=== PATIENT | female | born 1940 | race Caucasian/White ===

== ENCOUNTER 2016-12-12 05:49 | Emergency (ER) | payer MEDICARE, BC ==
[~2016-12-12 05:49] MED LIST: DIOVAN40 MG PO; DULCOLAX10 MG PR; LOPID600 MG PO; LORTAB 7.5-3251 EACH PO; LOVENOX40 MG/0.4 SQ; MAALOX DPS30 ML PO; MILK OF MAGNESI10 ML PO; MIRALAX DPS17 GM PO; NORVASC5 MG PO; PRILOSEC20 MG PO; SYNTHROID DP0.125 MG PO; TUMS DPS500 MG PO; TYLENOL DP650 MG/20. PO; TYLENOL-DPS650 MG PR; TYLENOL325 MG PO
--- NOTE | 2016-12-12 16:19 | ER ---
ADMIT: 12/12/2016 RM/LOC: ER [facility] MR#: [id number] [address] [address] JULIA BERNABE [address] [place] [address] Emergency Room Report SEX: F AGE: 76 : 1940 DATE: 12/12/2016 TIME: 0549 hours. Please refer to [address] Aleman's T sheet and his dictation. Briefly I am following up on labs on this patient. She came in with some kind of un- balance feeling. CAT scan of her brain was negative. CBC normal. Chemistries normal except glucose 136. UA normal. Troponin negative. Coags normal. EKG was sinus rhythm, no changes. She was given a 500 mL bolus, she did feel better. She suffers from seasonal allergies. After long discussion, we decided to treat her with some prednisone and she will follow up. ASSESSMENT: 1. Dizziness. 2. Seasonal allergies. PLAN: Prednisone 20 a day for 5 days. Return if worse. Follow up with Ryann next week. Willian Dior MD/ joan JOB #: [id number] CC: Prashant Aleman MD, Attending Physician Pal Stevens MD, Family Physician
--- NOTE | 2016-12-12 19:58 | ER ---
ADMIT: 12/12/2016 RM/LOC: ER [facility] MR#: [id number] [address] [address] JULIA BERNABE [address] [place] [address] Emergency Room Report SEX: F AGE: 76 : 1940 DATE: 12/12/2016 HISTORY OF PRESENT ILLNESS: The patient is a 76-year-old female who came to the ER with chief complaint of dizziness and allegedly globally since this morning. The patient states she woke up and had three loose bowel movement and she felt very wobbly and out of balance this morning. The patient states previously, she had similar episodes in the past, which was resolved. The patient denies any numbness, tingling, weakness, or any visual changes. The patient states she had general weakness without any specific focal weakness. PHYSICAL EXAMINATION: GENERAL: In the ER, the patient was alert, oriented to person, place, and time in no obvious pain or distress, lying in bed, the patient had stable vitals with elevated high blood pressure to 170s. HEENT: Normal extraocular movements. Pupils are 3 mm, reactive to light bilaterally, and normal cranial nerves. Normal motor and sensory in all extremities. There is no facial droop. CHEST: Clear bilaterally without any extra sounds. HEART: Normal S1, S2 without any murmurs. ABDOMEN: Soft without any pulsatile mass or other abnormalities. NECK: There are no bruits in the neck. EXTREMITIES: Exam was noncontributory. EKG did not show any ST or T changes. Lab work was requested, CBC, CMP, cardiac enzymes, and CT of the head was also requested. The patient was signed out to next shift to follow up on the lab work and imaging at this point accordingly. At this institution, the patient had no auditory symptom- like decreased hearing, ear discharge, vertigo, inner ear pathologies are not at the top of our differentials. The patient was signed out to the next shift to follow up on the lab work and reassess the patient at this point accordingly. Prashant Aleman MD/ joan JOB #: [id number] CC: Prashant Aleman MD, Attending Physician Pal Stevens MD, Family Physician
== END 2016-12-12 08:00 | disposition home or self-care (01) ==
LOC: ER 05:49
DX: R42 Dizziness and giddiness (principal); J30.2 Other seasonal allergic rhinitis; I10 Essential (primary) hypertension; E11.9 Type 2 diabetes mellitus without complications; E03.9 Hypothyroidism, unspecified; Z90.11 Acquired absence of right breast and nipple; Z79.899 Other long term (current) drug therapy; Z79.82 Long term (current) use of aspirin; Z79.01 Long term (current) use of anticoagulants